=== PATIENT | female | born 1945 | race Caucasian/White ===

== ENCOUNTER → 2017-07-27 | Outpatient (CLI) | payer MEDICARE, OTHER ==
--- NOTE | 2017-07-27 15:53 | RADIOLOGY REPORT (SQ) ---
EXAM DESCRIPTION: U/S RETROPERITON (RENAL/AORTA) COMPLETED DATE/TIME: 07/27/2017 3:44 pm REASON FOR STUDY: CHRONIC KIDNEY DISEASE, STAGE 3 N18.3 CHRONIC KIDNEY DISEASE, STAGE 3 (MODERATE) I10 ESSENTIAL (PRIMARY) HYPERTENSION Z94.4 LIVER TRANSPLANT STATUS COMPARISON: None. TECHNIQUE: Dynamic and static grayscale images acquired of the kidneys and bladder and recorded on P ACS. Additional selected color Doppler and spectral images recorded. LIMITATIONS: None. FINDINGS: RIGHT KIDNEY: Normal size. Normal echogenicity. No solid or suspicious masses. No hydronep hrosis. No calcifications. LEFT KIDNEY: Surgically absent. BLADDER: Empty. Not adequately visualized. OTHER FINDINGS: No other significant finding. IMPRESSION: UNREMARKABLE ULTRASOUND OF THE RIGHT KIDNEY. TECHNICAL DOCUMENTATION: JOB ID: [id number] [employer]- All Rights Reserved
== END ==
LOC: RAD 15:07
PROVIDERS: ATTEND Internal Medicine Nephrology
DX: I12.9 Hypertensive chronic kidney disease with stage 1 through stage 4 chronic kidney disease, or unspecified chronic kidney disease (principal); N18.3 Chronic kidney disease, stage 3 (moderate); E55.9 Vitamin D deficiency, unspecified; Z94.4 Liver transplant status
CPT/HCPCS: 76770